=== PATIENT | male | born 2000 | race Two or more races ===

== ENCOUNTER 2020-07-01 07:03 | Outpatient (CLI) | payer OTHER | END 2020-07-01 07:16 | disposition home or self-care (01) | LOC: LAB 07:03 | PROVIDERS: ATTEND General Practice | DX: Z13.89 Encounter for screening for other disorder (principal); Z00.01 Encounter for general adult medical examination with abnormal findings; Z68.33 Body mass index [BMI] 33.0-33.9, adult; Z11.3 Encounter for screening for infections with a predominantly sexual mode of transmission; Z11.4 Encounter for screening for human immunodeficiency virus [HIV]; Z12.11 Encounter for screening for malignant neoplasm of colon; Z13.220 Encounter for screening for lipoid disorders; Z13.228 Encounter for screening for other metabolic disorders; Z13.29 Encounter for screening for other suspected endocrine disorder; E03.8 Other specified hypothyroidism; R73.03 Prediabetes ==

== ENCOUNTER 2020-07-02 07:39 | Outpatient (CLI) | payer OTHER | END 2020-07-02 07:44 | disposition home or self-care (01) | LOC: LAB 07:39 | PROVIDERS: ATTEND General Practice | DX: Z13.89 Encounter for screening for other disorder (principal); Z00.01 Encounter for general adult medical examination with abnormal findings; Z68.33 Body mass index [BMI] 33.0-33.9, adult; Z11.3 Encounter for screening for infections with a predominantly sexual mode of transmission; Z11.4 Encounter for screening for human immunodeficiency virus [HIV]; Z12.11 Encounter for screening for malignant neoplasm of colon; Z13.220 Encounter for screening for lipoid disorders; Z13.228 Encounter for screening for other metabolic disorders; Z13.29 Encounter for screening for other suspected endocrine disorder ==